=== PATIENT | female | born 1935 | race Caucasian/White ===

== ENCOUNTER 2020-03-11 05:44 | Day surgery (SDC) | payer MEDICARE, BC ==
[2020-03-05 15:00] LABS: CLARITY,URINE CLEAR (Clear); COLOR,URINE STRAW (Yellow); GLUCOSE, URINE NEGATIVE (Neg); KETONES,URINE NEGATIVE (Neg); LEUKOCYTE ESTERASE ,URINE NEGATIVE (Neg); NITRITES, URINE NEGATIVE (Neg); OCCULT BLOOD,URINE TRACE-INTACT (Neg); PROTEIN,URINE NEGATIVE (Neg); UA COLLECTION TYPE CLN CATCH MIDSTREAM; UROBILINOGEN,URINE 0.2 E.U/dL (0.2-1.0)
[2020-03-05 15:05] LABS: SQUAMOUS EPITHELIAL CELL,UR FEW /LPF (FEW)
[2020-03-05 15:05] LABS: BASOPHILS % (AUTO) 0.5 % (0-1); EOSINOPHILS # (AUTO) 0.1 X10'3 (0-0.9); EOSINOPHILS % (AUTO) 1.9 % (0-6); LYMPHOCYTES # (AUTO) 1.8 X10'3 (1.1-4.8); LYMPHOCYTES % (AUTO) 29.4 % (21-51); MEAN CORPUSCULAR HEMOGLOBIN 31.1 PG (27.0-31.0); MEAN CORPUSCULAR HGB CONC 33.8 g/dL (33.0-36.5); MEAN CORPUSCULAR VOLUME 92.2 FL (78-98); MEAN PLATELET VOLUME 7.9 FL (7.4-10.4); MONOCYTES # (AUTO) 0.5 X10'3 (0-0.9); MONOCYTES % (AUTO) 7.7 % (2-12); NEUTROPHILS # (AUTO) 3.7 X10'3 (1.8-7.7); NEUTROPHILS % (AUTO) 60.5 % (42-75); PRE OP HEMATOCRIT 40.4 % (35.0-45.0); PRE OP HEMOGLOBIN 13.6 g/dL (12.0-16.0); PRE OP PLATELET COUNT 247 X10'3 (140-440); RED BLOOD COUNT 4.38 X10'6 (4.20-5.60); RED CELL DISTRIBUTION WIDTH 13.3 % (11.5-14.5)
[2020-03-05 15:07] LABS: BACTERIA,URINE FEW /HPF (Neg); RBC,URINE 0-2 /HPF (0-2); WBC,URINE NONE SEEN /HPF (0-4)
[2020-03-05 15:21] LABS: ALBUMIN 4.1 G/DL (3.4-5.0); ALBUMIN/GLOBULIN RATIO 1.3 (1.1-1.5); ALKALINE PHOSPHATASE 90 IU/L (46-116); BLOOD UREA NITROGEN 15 MG/DL (7-18); CALCIUM 9.3 MG/DL (8.5-10.1); CHLORIDE 105 MMOL/L (99-107); CREATININE 0.79 MG/DL (0.40-0.90); PRE OP ALT 28 U/L (30-65); PRE OP ANION GAP 9 (8-16); PRE OP AST 19 U/L (10-37); PRE OP BILIRUB, TOTAL 0.4 MG/DL (0.0-1.0); PRE OP GLUCOSE 128 MG/DL (70-104); PRE OP POTASSIUM 3.8 MMOL/L (3.4-5.1); PRE OP SODIUM 144 MMOL/L (135-145); TOTAL CARBON DIOXIDE 29.8 MMOL/L (24-32); TOTAL PROTEIN 7.2 G/DL (6.4-8.2); eGFR 70 ML/MIN
[~2020-03-11] VITALS: Ht 165.1 cm; Wt 74.8 kg
[2020-03-11] VITALS (11 sets, daily range): BP systolic 119–179; BP diastolic 61–93
[~2020-03-11 05:44] MED LIST: ACET-812 PO; ASPI-529 PO; ASTEPRO NS; CALC1CAP21 PO; CALC500T11 PO; CHOL100025 PO; CYAN50003 PO; DICL20GE TOP; LANS30CA37 PO; LORA10CA PO; MOME17SP NS; MULT-1085 PO; ROSU10TA2 PO; VIT1CAPS9 PO; cefazolin/dext.iso 2gm/50ml 50 ML IV ONE; famotidine 20mg tablet PO ONE; ringers solution, lacted 1,000 ML IV SCH
[2020-03-11] MEDS ORDERED: LIDOcaine 1% (10mg/ml) 2ml vial ONE (06:02)
[2020-03-11] MEDS ORDERED: BUPIVAcaine/PF 2.5 mg/ml (0.25%) 30ml vial ONE ×2 (07:07→08:10)
[2020-03-11] MEDS ORDERED: fentaNYL/PF 50MCG/1 ML 2ML syringe ONE (07:53)
[2020-03-11] MEDS ORDERED: midazolam 2 mg/2 ml injection ONE (07:54)
[2020-03-11] MEDS ORDERED: LIDOcaine 2% 5ml jelly ONE (07:57)
[2020-03-11] MEDS ORDERED: BUPIVACAINE liposomal/PF 13.3 MG/ML vial IM ONE (08:10)
[2020-03-11] MEDS ORDERED: ringers solution, lacted 1,000 ML IV SCH (08:38)
[2020-03-11] MEDS ORDERED: morphine 2 MG/ML inj. syringe IV PRN (08:40)
[2020-03-11] MEDS ORDERED: ondansetron/PF 4mg/2ml inj IV PRN (08:40)
[2020-03-11] MEDS ORDERED: hydrALAZINE 20mg/ml inj. IV PRN (08:40)
[2020-03-11] MEDS ORDERED: proCHLORperazine 10 MG/2 ml inj IV PRN (08:40)
[2020-03-11] MEDS ORDERED: acetaminophen 1,000mg/100ml IV 100 ML IV PRN (08:40)
[2020-03-11] MEDS ORDERED: labetalol 20mg/4ml (5mg/ml) syringe IV PRN (08:40)
[2020-03-11] MEDS ORDERED: meperidine/PF 25mg/ml syringe IV PRN ×3 (08:40)
[2020-03-11] MEDS ORDERED: morphine 4 MG/ML inj SYRINge IV PRN (08:40)
[2020-03-11] MEDS ORDERED: rocuronium 10mg/ml inj IV ONE (08:45)
[2020-03-11] MEDS ORDERED: glycopyrrolate 0.2mg/ml inj ONE (08:45)
[2020-03-11] MEDS ORDERED: propofol inj 20 ML IV ONE (08:45)
[2020-03-11] MEDS ORDERED: LIDOcaine 2% (20mg/ml) 5ml vial ONE (08:45)
[2020-03-11] MEDS ORDERED: dexamethasone sod phosphate 4mg/ml inj. ONE (08:45)
[2020-03-11] MEDS ORDERED: neostigmine methylsulfate 1 MG/ML 10ml vial ONE (08:45)
[2020-03-11] MEDS ORDERED: ondansetron/PF 4mg/2ml inj ONE (08:45)
--- NOTE | 2020-03-11 09:15 | NUR ---
Received from OR via [facility], accompanied by Anesthesiologist EDI and report given by Anesthesiolgist. PATIENT WITH 20G PIV IN LEFT UE RUNNNING LR AT 100. PAIN OF 5/10 TO ABDOMEN. WILL MEDICATE. 4 ABDOMINAL BANDAIDS PRESENT THAT ARE CDI. ONE WITH BLOOD PRESENT. WILL REASSESS. 10L MASK ON WITH 96% SATURATIONS. VSS. Addendum: 03/11/20 at 0926 by Yoni Mendoza RN, RN Amended: Links added.
--- NOTE | 2020-03-11 10:45 | NUR ---
PATIENT AND FAMILY AND THEY HAVE VERBALIZED UNDERSTANDING, OPPORTUNITY TO ASK QUESTIONS GIVEN AND PATIENT COMFORTABLE WITH DC. IV TAKEN OUT WITHOUT COMPLICATION. PATIENT HAS MET ALL DC CRITERIA FOR DC HOME. I HAVE REVIEWED D/C INSTRUCTIONS WITH OUT VIA WHEELCHAIR WHERE PATIENT WAS TAKEN HOME WITH ALL BELONGINGS. FAMILY GAVE PATIENT TRANSPORT HOME. 4 ABDOMINAL DRESSING MAINTAIN THE SAME AMOUNT OF DRAINAGE ARRIVAL. DISCUSSED SPLINTING WITH A PILLOW AND GETTING UP OFTER THROUGHOUT THE DAY. VSS. PAIN AT A TOLERABLE LEVEL, DAUGHTER PRESENT TO DRIVE PATIENT HOME. ENOURAGED TO DEEP BREATHE AND COUGH. Addendum: 03/11/20 at 1050 by Yoni Mendoza RN, RN Amended: Links added.
== END 2020-03-11 10:45 | disposition home or self-care (01) ==
LOC: PAS 05:44
PROVIDERS: ATTEND Surgery
DX: K43.9 Ventral hernia without obstruction or gangrene (principal); E78.5 Hyperlipidemia, unspecified; G62.9 Polyneuropathy, unspecified; K21.9 Gastro-esophageal reflux disease without esophagitis; G47.33 Obstructive sleep apnea (adult) (pediatric); M19.90 Unspecified osteoarthritis, unspecified site; Z90.49 Acquired absence of other specified parts of digestive tract; Z98.890 Other specified postprocedural states; Z72.89 Other problems related to lifestyle; Z79.01 Long term (current) use of anticoagulants; Z20.828 Contact with and (suspected) exposure to other viral communicable diseases; Z79.899 Other long term (current) drug therapy; Z79.82 Long term (current) use of aspirin; Z98.49 Cataract extraction status, unspecified eye
CPT/HCPCS: 36415; 49652; 64488; 80053; 81001; 82948; 85025; 85610; 85730; 87635; 93005; C1713; C1758; C1781; C9290; J0131; J1100; J2001; J2175; J2250; J2270; J2405; J2704; J2710; J3010; J3490; J7120; A4215; A4618; A7000